=== PATIENT | female | born 1980 | race Caucasian/White ===

== ENCOUNTER 2017-10-01 10:40 | Day surgery (SDC) | payer BC ==
[2017-10-01] MEDS ORDERED: BUPIVACAINE HCL 0.25% MPF 10 ML SOL INFIL ONE (11:24)
[2017-10-01] MEDS: TRIAMCINOLONE ACETONIDE 40 MG/ML SUS ONE ×2 (11:39→11:48)
[2017-10-01 12:10] VITALS: BP 158/99; PULSE 69; RESP 16; TEMP 98.6; O2SAT 99
== END 2017-10-01 12:15 | disposition home or self-care (01) ==
LOC: SURG 10:40
PROVIDERS: ATTEND Nurse Anesthetist, Certified Registered
DX: M53.3 Sacrococcygeal disorders, not elsewhere classified (principal)
CPT/HCPCS: J3300

== ENCOUNTER 2017-11-04 13:48 | Day surgery (SDC) | payer BC ==
[2017-11-04] MEDS ORDERED: DEXAMETHASONE SOD PHOS PF 10 MG/ML SOL IJ ONE (15:15)
[2017-11-04] MEDS ORDERED: BUPIVACAINE HCL 0.25% MPF 30 ML SOL INFIL ONE (15:16)
[2017-11-04 15:46] VITALS: BP 138/83; PULSE 60; RESP 20; TEMP 98.4; O2SAT 99
== END 2017-11-04 15:55 | disposition home or self-care (01) ==
LOC: SURG 13:48
PROVIDERS: ATTEND Nurse Anesthetist, Certified Registered
DX: M51.17 Intervertebral disc disorders with radiculopathy, lumbosacral region (principal)
CPT/HCPCS: J1100